=== PATIENT | male | born 1940 | race Caucasian/White ===

== ENCOUNTER 2016-06-13 11:04 | Inpatient (IN) | payer MEDICARE, MEDICAID ==
[~2016-06-13] VITALS: Ht 182.9 cm; Wt 72.6 kg
[~2016-06-13 11:04] MED LIST: SULF1TAB38 PO; TBDX2.5OP OP
--- OUTSIDE RECORDS SUMMARY | 2016-06-13 11:11 | XMS REPORT | Continuity of Care Document ---
Author Author [facility] Organization [facility] Address Unknown Phone Unavailable Allergies Medications Problems Procedures Results Encounters ACCT No. Visit Date/Time Discharge Status Pt. Type Provider Facility Loc./Unit Complaint [id number] 07/24/2013 17:55:00 2013 18:44:00 DIS Emergency [id number] 09/21/2012 12:18:00 2012 23:59:59 CLS Outpatient
[2016-06-13] MEDS ORDERED: NS IV 500 ML 500 ML IV ONE (11:40)
--- NOTE | 2016-06-13 11:57 | ED Fall/Injury ---
General Chief Complaint: Trauma-Non Activation Stated Complaint: FALL/UNSTEADY GAIT CONFUSED Nursing Triage Note: Fall yesterday- hit head on wall. leaning to rt- Source: patient Exam Limitations: no limitations History of Present Illness Time seen by provider: 11:40 Initial Comments Here with report of fall yesterday and hitting his head on the wall. Reports from residential state that he is bleeding to the right. He was seen by his primary care provider at the residential today, Robert Gaines APRN. He is requesting evaluation do to fall and hitting his head. Patient denies any significant pain but he has Alzheimer's disease and residential report that he is acting a little different than typical. He is moving all extremities. He does appear to be weak. Patient is poor historian due to clinical condition. Occurred: yesterday Severity: moderate Injuries/Pain Location: head Context: unknown Loss of Consciousness: no loss of consciousness Associated Symptoms (Fall): No Abdominal Pain, No Chest Pain, ConfusionNo Nausea/Vomiting, No Neck Pain Allergies and Home Medications Allergies Coded Allergies: No Known Drug Allergies (Unverified , 06/13/16) Constitutional: see HPINo chills, No fever Eyes: No Symptoms Reported Ears, Nose, Mouth, Throat: no symptoms reporteddenies epistaxis, denies mouth pain Respiratory: no symptoms reportedNo short of breath, No wheezing Cardiovascular: no symptoms reportedNo chest pain Other Unable to complete review of systems due to underlying medical condition and history of dementia with findings of poor historian. All Other Systems Reviewed Negative Unless Noted: No Past Bnsgaly-Anlxxe-Hzptpu Hx Patient Social History Alcohol Use: Denies Use Recreational Drug Use: No Smoking Status: Never a Smoker 2nd Hand Smoke Exposure: No Recent Foreign Travel: No Contact w/Someone Who Travel: No Recent Infectious Disease Expo: No Recent Hopitalizations: No Immunizations Up To Date Tetanus Booster (TDap): Unknown Date of Pneumonia Vaccine: Jan 07, 2012 Date of Influenza Vaccine: Jan 26, 2016 Seasonal Allergies Seasonal Allergies: No Surgeries HX Surgeries: No Respiratory Hx Respiratory Disorders: Yes ("SPOT ON HIS LUNG") Cardiovascular Hx Cardiac Disorders: No Neurological Hx Neurological Disorders: No Reproductive System Hx Reproductive Disorders: No Sexually Transmitted Disease: No Genitourinary Hx Genitourinary Disorders: No Gastrointestinal Hx Gastrointestinal Disorders: No Musculoskeletal Hx Musculoskeletal Disorders: No Endocrine Hx Endocrine Disorders: No HEENT HX ENT Disorders: Yes Psychosocial Hx Psychiatric Problems: Yes (dementia/insomnia) Blood Transfusions Hx Blood Disorders: No Reviewed Nursing Assessment Reviewed/Agree w Nursing PMH: Yes Family Medical History Significant Family History: No Pertinent Family Hx Physical Exam Vital Signs Vital Sign - Last 12Hours Capillary Refill : Less Than 3 Seconds General Appearance: WD/WN no apparent distress HEENT: PERRL/EOMI pharynx normal Neck: full range of motion supple Cardiovascular: regular rate, rhythm no murmur Respiratory: lungs clear normal breath sounds Gastrointestinal: non tender soft Back: normal inspection no CVA tenderness no vertebral tenderness Extremities: non-tender normal inspection Neurologic/Psychiatric: alert motor weakness (appears globally weak) depressed affect other (oriented to self does follow simple commands.) Skin: normal color warm/dry ecchymosis (forehead has small area centrally.) Manasa Coma Score Best Eye Response: (4) Open Spontaneously Best Verbal Response: (5) Oriented Best Motor Response: (6) Obeys Commands Progress/Results/Core Measures Results/Orders Lab Results Laboratory Tests Test 06/13/16 11:30 06/13/16 11:45 Range/Units Alanine Aminotransferase (ALT/SGPT) 12 0-55 U/L Albumin 4.1 3.2-4.5 G/DL Alkaline Phosphatase 96 40-136 U/L Anion Gap 12 5-14 MMOL/L Aspartate Amino Transf (AST/SGOT) 24 5-34 U/L BUN/Creatinine Ratio 15 Basophils # (Auto) 0.0 0.0-0.1 10^3/uL Basophils (%) (Auto) 0 0-10 % Blood Urea Nitrogen 13 7-18 MG/DL C-Reactive Protein High Sensitivity 0.04 0.00-0.50 MG/DL Calcium Level 8.9 8.5-10.1 MG/DL Carbon Dioxide Level 24 21-32 MMOL/L Chloride Level 106 98-107 MMOL/L Creatinine 0.84 0.60-1.30 MG/DL Eosinophils # (Auto) 0.0 0.0-0.3 10^3/uL Eosinophils (%) (Auto) 1 0-10 % Estimat Glomerular Filtration Rate > 60 Glucose Level 82 70-105 MG/DL Hematocrit 47 40-54 % Hemoglobin 15.7 13.3-17.7 G/DL Lymphocytes # (Auto) 1.0 1.0-4.0 X 10^3 Lymphocytes (%) (Auto) 14 12-44 % Mean Corpuscular Hemoglobin 31 25-34 PG Mean Corpuscular Hemoglobin Concent 34 32-36 G/DL Mean Corpuscular Volume 91 80-99 FL Mean Platelet Volume 11.2 H 7.4-10.4 FL Monocytes # (Auto) 0.7 0.0-1.0 X 10^3 Monocytes (%) (Auto) 10 0-12 % Neutrophils # (Auto) 5.1 1.8-7.8 X 10^3 Neutrophils (%) (Auto) 75 42-75 % Platelet Count 197 130-400 10^3/uL Potassium Level 4.2 3.6-5.0 MMOL/L Red Blood Count 5.15 4.35-5.85 10^6/uL Red Cell Distribution Width 13.9 10.0-14.5 % Sodium Level 142 135-145 MMOL/L Thyroid Stimulating Hormone (TSH) 0.97 0.35-4.94 UIU/ML Total Bilirubin 0.6 0.1-1.0 MG/DL Total Protein 6.9 6.4-8.2 G/DL White Blood Count 6.8 4.3-11.0 10^3/uL Urine Bacteria NEGATIVE /HPF Urine Bilirubin 1+ H NEGATIVE Urine Casts NONE /LPF Urine Clarity CLEAR Urine Color YELLOW Urine Crystals NONE /LPF Urine Culture Indicated NO Urine Glucose (UA) NEGATIVE NEGATIVE Urine Ketones 1+ H NEGATIVE Urine Leukocyte Esterase 1+ H NEGATIVE Urine Mucus SMALL H /LPF Urine Nitrite NEGATIVE NEGATIVE Urine Protein 2+ H NEGATIVE Urine RBC 0-2 /HPF Urine RBC (Auto) NEGATIVE NEGATIVE Urine Specific [place] 1.025 H 1.016-1.022 Urine Squamous Epithelial Cells NONE /HPF Urine Urobilinogen 4 H NORMAL MG/DL Urine WBC 2-5 /HPF Urine pH 6 5-9 My Orders Orders-ANA AMBROSIO MD Ct Head Wo (06/13/16 11:40) Cbc With Automated Diff (06/13/16 11:40) Comprehensive Metabolic Panel (06/13/16 11:40) Hs C Reactive Protein (06/13/16 11:40) Thyroid Stimulating Hormone (06/13/16 11:40) Ua Culture If Indicated (06/13/16 11:40) Saline Lock/Iv-Start (06/13/16 11:40) Ns Iv 500 Ml (Sodium Chloride 0.9%) (06/13/16 11:40) Chest 1 View, Ap/Pa Only (06/13/16 11:40) Medications Given in ED Current Medications Medications Dose Ordered Sig/Regis Route Start Time Stop Time Status Last Admin Dose Admin Sodium Chloride 500 ml @ 0 mls/hr Q0M ONCE IV 06/13/16 11:40 06/13/16 11:43 DC 06/13/16 11:59 500 MLS/HR Vital Signs/I&O Vital Sign - Last 12Hours 06/13/16 06/13/16 06/13/16 11:17 11:17 12:40 Temp 97.4 97.4 Pulse 70 70 76 Resp 18 18 18 B/P 145/99 145/99 143/95 Pulse Ox 96 97 96 Blood Pressure Mean: 114 Progress Note : Progress Note Seen and evaluated. IV, labs, CT head, UA, normal saline 500 mL bolus ordered. Monitor patient. 1255: Labs and CT reviewed. Patient does have small area of hemorrhagic stroke which radiologist believes is likely acute to subacute and the cause of the weakness and not a result of the fall. I agree. I did discuss all the findings and concerns with the and the patient was that the POA. He is DO NOT RESUSCITATE per her for which I agree. He is not a surgical candidate and she does not want him to have any type of surgery. Due to recent nature of hemorrhagic condition, it is reasonable to keep patient in the hospital for further evaluation including swallow study etc. This was discussed with the agrees. We did attempt to do a stroke scale and patient will speak and there is no facial droop but he does not follow commands and you're unable to truly evaluate a stroke scale with any validity. Due to difficulty with following commands, we will also refill him on his dysphagia screen and request speech evaluation. 1305: I did discuss the case with Dr. Nye. She will except patient for admission. Patient has balance and gait disturbance consistent with the hemorrhagic stroke. Admit, inpatient status. Diagnostic Imaging Diagonstic Imaging: CT Plain Films/CT/US/NM/MRI: head Comments [facility]. [place], [place] NAME: LINMARIAJOSE [facility] REC#: [id number] PT STATUS: REG ER : 1940 PHYSICIAN: ANA AMBROSIO MD ADMIT DATE: 06/13/16/ER Draft Date of Exam:06/13/16 CT HEAD WO PROCEDURE: CT head without contrast. TECHNIQUE: Multiple contiguous axial images were obtained through the brain without the use of intravenous contrast. INDICATION: Leaning to the right, unsteady gait, fall. Study compared 05/08/2009. FINDINGS: In the high posterior right parietal lobe, there is a small hyperdense presumed intracerebral hematoma with mild charla-hemorrhagic edema. It measures 9.6 mm in long axis and exerts no mass effect. It is best seen and measured on axial image 27. There are no findings of intraventricular hemorrhage. No subdural or epidural hematoma. No other suspected intracerebral blood products are found. There is no displaced or appreciable calvarial fracture deformity. The mastoids and middle ear cavities clear. There is no paranasal hemosinus. Since the prior study, there is progressive generalized cerebral cortical atrophy with increased periventricular white matter small vessel sequelae. There also appears to be a left basal ganglion lacunar infarct having developed from the prior but well visualized and likely nonacute. There is some small vessel sequelae in brainstem most notably at the rosette having increased but likely chronic as well. IMPRESSION: 1. Hyperdense nodule right high parietal lobe posteriorly believed to reflect small intraparenchymal cerebral hematoma less than 1 cm with mild charla-hemorrhagic edema and no resultant mass effect. No other acute finding. 2. Progressive atrophy, white matter small vessel sequelae, and old ischemic changes noted. 3. Pertinent results have been discussed by phone with the emergency room physician at the time of this dictation. Dictated on workstation # [id number] Dict: 06/13/16 1210 Trans: 06/13/16 1235 KB [id number] Interpreted by: MARY STRE[address] Electronically signed by: Dianstic Imaging: Xray Comments [facility] [place], [place] NAME: MARIAJOSE CEBALLOS [facility] REC#: [id number] PT STATUS: REG ER : 1940 PHYSICIAN: ANA AMBROSIO MD ADMIT DATE: 06/13/16/ER Draft Date of Exam:06/13/16 CHEST 1 VIEW, AP/PA ONLY INDICATION: Unsteady gait and fall. Frontal chest obtained at 12:06 p.m. and compared to 09/21/2012. FINDINGS: Heart is normal in size. Mediastinal silhouette shows mild tortuosity of the aorta. There is no acute infiltrate or pneumothorax or pleural fluid. There are mild chronic-appearing increased basilar markings. IMPRESSION: No acute consolidation or pneumothorax or pleural fluid. No acute process in the chest. Dictated on workstation # [id number] Dict: 06/13/16 1212 Trans: 06/13/16 1218 KB [id number] Interpreted by: DUC RODRIGUEZ MD Electronically signed by: Departure Communication Time/Spoke to Admitting Phy: 13:02 Impression Impression: Primary Impression: Hemorrhagic stroke Disposition: 09 ADMITTED INPATIENT Condition: Stable (small) Decision to Admit Reason: Admit from ER (General) Decision to Admit/Date: Jun 13, 2016 Time/Decision to Admit Time: 13:02 Departure-Patient Inst. Decision time for Depature: 13:02 Referrals: EZEKIEL VAZQUEZ MD (PCP/Family) Primary Care Physician Scripts No Active Prescriptions or Reported Meds ANA AMBROSIO MD Jun 13, 2016 11:57
[2016-06-13 12:05] LABS: BASOPHILS % (AUTO) 0 % (0-10); EOSINOPHILS % (AUTO) 1 % (0-10); LYMPHOCYTES % (AUTO) 14 % (12-44); MEAN CORPUSCULAR HEMOGLOBIN 31 PG (25-34); MEAN CORPUSCULAR HGB CONC 34 G/DL (32-36); MEAN CORPUSCULAR VOLUME 91 FL (80-99); MEAN PLATELET VOLUME 11.2 FL (7.4-10.4); MONOCYTES # (AUTO) 0.7 X 10^3 (0.0-1.0); MONOCYTES % (AUTO) 10 % (0-12); NEUTROPHILS # (AUTO) 5.1 X 10^3 (1.8-7.8); NEUTROPHILS % (AUTO) 75 % (42-75); PLATELET COUNT 197 10^3/uL (130-400); RED BLOOD COUNT 5.15 10^6/uL (4.35-5.85); RED CELL DISTRIBUTION WIDTH 13.9 % (10.0-14.5); WHITE BLOOD COUNT 6.8 10^3/uL (4.3-11.0)
[2016-06-13 12:06] LABS: KETONES,URINE 1+ (NEGATIVE); LEUKOCYTE ESTERASE ,URINE 1+ (NEGATIVE); NITRITE,URINE NEGATIVE (NEGATIVE); PH,URINE 6 (5-9); PROTEIN,URINE 2+ (NEGATIVE); UROBILINOGEN,URINE 4 MG/DL (NORMAL)
[2016-06-13 12:18] LABS: BILIRUBIN,URINE 1+ (NEGATIVE)
--- NOTE | 2016-06-13 12:18 | Diagnostic Imaging Report ---
INDICATION: Unsteady gait and fall. Frontal chest obtained at 12:06 p.m. and compared to 09/21/2012. FINDINGS: Heart is normal in size. Mediastinal silhouette shows mild tortuosity of the aorta. There is no acute infiltrate or pneumothorax or pleural fluid. There are mild chronic-appearing increased basilar markings. IMPRESSION: No acute consolidation or pneumothorax or pleural fluid. No acute process in the chest. Dictated by: Dictated on workstation # [id number]
[2016-06-13 12:26] LABS: ALANINE AMINOTRANSFERASE 12 U/L (0-55); ALBUMIN 4.1 G/DL (3.2-4.5); ANION GAP 12 MMOL/L (5-14); ASPARTATE AMINO TRANSFERASE 24 U/L (5-34); BILIRUBIN,TOTAL 0.6 MG/DL (0.1-1.0); BLOOD UREA NITROGEN 13 MG/DL (7-18); BUN/CREATININE RATIO 15; CALCIUM 8.9 MG/DL (8.5-10.1); CARBON DIOXIDE 24 MMOL/L (21-32); CHLORIDE 106 MMOL/L (98-107); CREATININE SERUM 0.84 MG/DL (0.60-1.30); GFR ESTIMATED > 60; GLUCOSE 82 MG/DL (70-105); POTASSIUM 4.2 MMOL/L (3.6-5.0); SODIUM 142 MMOL/L (135-145); TOTAL PROTEIN 6.9 G/DL (6.4-8.2); hs C REACTIVE PROTEIN 0.04 MG/DL (0.00-0.50)
--- NOTE | 2016-06-13 12:35 | Diagnostic Imaging Report ---
PROCEDURE: CT head without contrast. TECHNIQUE: Multiple contiguous axial images were obtained through the brain without the use of intravenous contrast. INDICATION: Leaning to the right, unsteady gait, fall. Study compared 05/08/2009. FINDINGS: In the high posterior right parietal lobe, there is a small hyperdense presumed intracerebral hematoma with mild charla-hemorrhagic edema. It measures 9.6 mm in long axis and exerts no mass effect. It is best seen and measured on axial image 27. There are no findings of intraventricular hemorrhage. No subdural or epidural hematoma. No other suspected intracerebral blood products are found. There is no displaced or appreciable calvarial fracture deformity. The mastoids and middle ear cavities clear. There is no paranasal hemosinus. Since the prior study, there is progressive generalized cerebral cortical atrophy with increased periventricular white matter small vessel sequelae. There also appears to be a left basal ganglion lacunar infarct having developed from the prior but well visualized and likely nonacute. There is some small vessel sequelae in brainstem most notably at the rosette having increased but likely chronic as well. IMPRESSION: 1. Hyperdense nodule right high parietal lobe posteriorly believed to reflect small intraparenchymal cerebral hematoma less than 1 cm with mild charla-hemorrhagic edema and no resultant mass effect. No other acute finding. 2. Progressive atrophy, white matter small vessel sequelae, and old ischemic changes noted. 3. Pertinent results have been discussed by phone with the emergency room physician at the time of this dictation. Dictated by: Dictated on workstation # [id number]
[2016-06-13 12:40] VITALS: BP 143/95
[2016-06-13 12:48] LABS: THYROID STIMULATING HORMONE 0.97 UIU/ML (0.35-4.94)
[2016-06-13 14:37] VITALS: BP 172/92
[2016-06-13] MEDS ORDERED: TRAZ150T72 PO (15:06)
[2016-06-13] MEDS ORDERED: MELA1TAB10 PO (15:06)
[2016-06-13] MEDS ORDERED: POLY15DR14 OU (15:06)
[2016-06-13] MEDS ORDERED: MAGN400O7 PO (15:06)
[2016-06-13] MEDS ORDERED: LORA10TA76 PO (15:06)
[2016-06-13] MEDS ORDERED: DVL125C PO ×2 (15:06)
[2016-06-13] MEDS ORDERED: POLY17PO6 PO (15:06)
[2016-06-13] MEDS ORDERED: ACET-2267 PO (15:06)
[2016-06-13] MEDS ORDERED: RIVA1PAT13 TD (15:06)
[2016-06-13] MEDS ORDERED: LORA0.5T PO (15:06)
[2016-06-13] MEDS ORDERED: MEMA10TA2 PO (15:06)
[2016-06-13] MEDS ORDERED: DOCU-143 PO (15:06)
[2016-06-13] MEDS ORDERED: VIT-8 PO (15:06)
[2016-06-13] MEDS ORDERED: LABETALOL HCL 20 MG/4 ML VIAL IV PRN (15:15)
[2016-06-13] MEDS ORDERED: CATHETER FLUSH 10 ML SYR IV PRN (15:15)
[2016-06-13] MEDS: NS IV 1000 ML 1,000 ML IV SCH (15:18)
[2016-06-13 16:00] VITALS: BP 149/97
--- NOTE | 2016-06-13 16:29 | Speech Therapy Progress Note ---
Therapy Progress Note Nursing was notified that a speech therapist is unavailable until 06/16/16. Per policy nursing can administer the bed side swallow assessment in order to determine whether or not to place a patient on swallowing restrictions. Speech therapy will consult with this patient 06/16/16. Vic Willis, PT Director of Rehab Services VIC WILLIS PT Jun 13, 2016 16:29
[2016-06-13] MEDS ORDERED: LORazepam INJ 2 MG/ML (ATIVAN) VIAL IVP NR (18:30)
[2016-06-13 20:00] VITALS: BP 148/85
[2016-06-13] MEDS ORDERED: LORazepam INJ 2 MG/ML (ATIVAN) VIAL IVP PRN (20:00)
[2016-06-13] MEDS: ARTIFICAL TEARS 0.4 ML UNIT DOSE (REFRESH PLUS) OU SCH (21:00)
[2016-06-13] MEDS: MEMANTINE 10 MG (NAMENDA) TABLET PO SCH (21:00)
[2016-06-13] MEDS ORDERED: LORazepam 0.5 MG (ATIVAN) TABLET PO SCH (21:00)
[2016-06-13] MEDS: traZODone 150 MG (DESYREL) TABLET PO SCH (21:00)
[2016-06-13] MEDS ORDERED: NON-FORMULARY MEDICATION 1 EA EA (Polyvinyl Alcohol/Povidone (Artificial Tears Drops) 1 DR OU SCH (21:00)
[2016-06-14] VITALS: BP 142/80
[2016-06-14] MEDS: NS IV 1000 ML 1,000 ML IV SCH (01:15)
[2016-06-14 03:53] LABS: BASOPHILS % (AUTO) 1 % (0-10); EOSINOPHILS # (AUTO) 0.1 10^3/uL (0.0-0.3); EOSINOPHILS % (AUTO) 2 % (0-10); LYMPHOCYTES # (AUTO) 1.3 X 10^3 (1.0-4.0); LYMPHOCYTES % (AUTO) 28 % (12-44); MEAN CORPUSCULAR HEMOGLOBIN 30 PG (25-34); MEAN CORPUSCULAR HGB CONC 33 G/DL (32-36); MEAN CORPUSCULAR VOLUME 92 FL (80-99); MONOCYTES # (AUTO) 0.5 X 10^3 (0.0-1.0); MONOCYTES % (AUTO) 11 % (0-12); NEUTROPHILS # (AUTO) 2.8 X 10^3 (1.8-7.8); NEUTROPHILS % (AUTO) 59 % (42-75); PLATELET COUNT 169 10^3/uL (130-400); RED BLOOD COUNT 4.37 10^6/uL (4.35-5.85); RED CELL DISTRIBUTION WIDTH 13.6 % (10.0-14.5); WHITE BLOOD COUNT 4.7 10^3/uL (4.3-11.0)
[2016-06-14 04:00] VITALS: BP 134/90
[2016-06-14 04:26] LABS: ALANINE AMINOTRANSFERASE 9 U/L (0-55); ALBUMIN 3.2 G/DL (3.2-4.5); ANION GAP 12 MMOL/L (5-14); ASPARTATE AMINO TRANSFERASE 19 U/L (5-34); BILIRUBIN,TOTAL 0.7 MG/DL (0.1-1.0); BLOOD UREA NITROGEN 11 MG/DL (7-18); BUN/CREATININE RATIO 15; CALCIUM 8.1 MG/DL (8.5-10.1); CARBON DIOXIDE 20 MMOL/L (21-32); CHLORIDE 110 MMOL/L (98-107); CREATININE SERUM 0.74 MG/DL (0.60-1.30); GFR ESTIMATED > 60; GLUCOSE 71 MG/DL (70-105); SODIUM 142 MMOL/L (135-145); TOTAL PROTEIN 5.1 G/DL (6.4-8.2)
[2016-06-14 08:00] VITALS: BP 136/67
--- NOTE | 2016-06-14 09:11 | History & Physical-Hospitalist ---
HPI History of Present Illness: HPI/Chief Complaint this is a 75-year-old white male with Alzheimer's retirement resident. He was seen by Garry Gaines yesterday and was sent to the emergency room for further evaluation of increased falling and weakness on the right side. I discussed with his daughter this morning the fact that a week ago he had been able to jump up and was very agile and active. He had fallen approximately 2 days ago; just pitched forward striking his head. Since then his right side has been weaker and is been unable to ambulate and keeps falling. this morning the patient is somewhat somnolent having received some Ativan overnight for his agitation. he follows direction slowly and incompletely seems to be devoid of any pain. CT showed a hemorrhagic stroke in the right parietal region. Source: family, retirement records Exam Limitations: clinical condition Date Seen 06/14/16 Attending Physician Kimo Nye MD PCP Ezekiel Vazquez MD Referring Physician Date of Admission Jun 13, 2016 at 1:31 pm Home Medications & Allergies Home Medications Reviewed patient Home Medication Reconciliation Form Allergies Coded Allergies: No Known Drug Allergies (Unverified , 06/13/16) Past Cnohbvu-Dneylm-Uyylyy Hx Patient Social History Employed/Student: retired Alcohol Use: Denies Use Recreational Drug Use: No Smoking Status: Never a Smoker 2nd Hand Smoke Exposure: No Physical Abuse Screen: No Sexual Abuse: No Recent Foreign Travel: No Contact w/other who traveled: No Recent Hopitalizations: No Recent Infectious Disease Expo: No Immunizations Up To Date Tetanus Booster (TDap): Unknown Date of Pneumonia Vaccine: Jan 07, 2012 Date of Influenza Vaccine: Jan 26, 2016 Seasonal Allergies Seasonal Allergies: No Surgeries HX Surgeries: Yes Surgeries: Appendectomy Respiratory Hx Respiratory Disorders: Yes ("SPOT ON HIS LUNG") Cardiovascular Hx Cardiovascular Disorders: No Neurological Hx Neurological Disorders: No Reproductive System Hx Reproductive Disorders: No Sexually Transmitted Disease: No Genitourinary Hx Genitourinary Disorders: No Gastrointestinal Hx Gastrointestinal Disorders: No Musculoskeletal Hx Musculoskeletal Disorders: No Endocrine Hx Endocrine Disorders: No HEENT HX ENT Disorders: Yes Cancer Hx Cancer: Yes Cancer: Melanoma Psychosocial Hx Psychiatric Problems: Yes (dementia/insomnia) Blood Transfusions Hx Blood Disorders: No Reviewed Nursing Assessment Reviewed/Agree w Nursing PMH: Yes Family Medical History Significant Family History: No Pertinent Family Hx Family Hx: Diabetes mellitus 19 MOTHER Neoplasm 19 MOTHER Review of Systems Constitutional: no symptoms reported see HPI Physical Exam Physical Exam Vital Signs Vital Sign - Last 12Hours 06/13/16 14:37 O2 Delivery Room Air Capillary Refill : Less Than 3 Seconds General Appearance: No Apparent Distress HEENT: Other (won't open his mouth for inspection) Neck: Limited Range of Motion Respiratory: Lungs Clear Normal Breath Sounds No Accessory Muscle Use No Respiratory Distress Cardiovascular: Regular Rate, Rhythm No Gallop No Murmur Normal Peripheral Pulses Gastrointestinal: Normal Bowel Sounds No Organomegaly No Pulsatile Mass Non Tender Soft Rectal: Deferred Extremity: Normal Inspection Normal Range of Motion Non Tender No Calf Tenderness Other (onychomycosis) Neurologic/Psychiatric: Depressed Affect Disoriented x3 Other (no real motor weakness found on exam but very difficult to evaluate because of the sedation and his dementia) Skin: Pallor Results Results/Procedures Lab Laboratory Tests 06/13/16 11:30 06/14/16 03:24 Radiology 1. Hyperdense nodule right high parietal lobe posteriorly believed to reflect small intraparenchymal cerebral hematoma less than 1 cm with mild charla-hemorrhagic edema and no resultant mass effect. No other acute finding. 2. Progressive atrophy, white matter small vessel sequelae, and old ischemic changes noted. 3. Pertinent results have been discussed by phone with the emergency room physician at the time of this dictation. Assessment/Plan Admission Diagnosis 1.right parietal hemorrhagic stroke-patient is currently unable to swallow well and will require IV fluids until this is completely evaluated 2. Senile dementia of Alzheimer's type with episodic agitation 3. Mild dehydration Copy Copies To 1: EZEKIEL VAZQUEZ MD Clinical Quality Measures DVT/VTE Risk/Contraindication: Risk Factor Score Per Nursin RFS Level Per Nursing on Admit: 4+=Very High Contraindications-Pharm: Other *list below* Other: hemorrhagic stroke KIMO NYE MD Jun 14, 2016 9:11 am
[2016-06-14] MEDS: ARTIFICAL TEARS 0.4 ML UNIT DOSE (REFRESH PLUS) OU SCH ×4 (09:24→20:32)
[2016-06-14] MEDS: AA 4.25% W/LYTES IN D5W IV SOL 1,000 ML IV SCH ×2 (09:25→18:25)
[2016-06-14] MEDS: MEMANTINE 10 MG (NAMENDA) TABLET PO SCH ×2 (10:15→20:32)
[2016-06-14] MEDS: DIVALPROX SPRINKLE 125 MG (DEPAKOTE) CAP PO SCH ×2 (10:25→13:20)
[2016-06-14] MEDS: RIVASTIGMINE 13.3 MG TD SCH (11:14)
[2016-06-14 11:57] VITALS: BP 187/90
[2016-06-14 16:18] VITALS: BP 156/79
--- NOTE | 2016-06-14 16:25 | Diagnostic Imaging Report ---
PROCEDURE: CT head and CT cervical spine without contrast. TECHNIQUE: Multiple contiguous axial images were obtained through the brain and cervical spine without the use of intravenous contrast. Sagittal and coronal reformations through the cervical spine were then performed. INDICATION: Fell in shower. Right-sided pain. COMPARISON: 06/13/2016. FINDINGS: CT head: The hyperdense area noted in the high right parietal cortex is again identified. This shows mean Hounsfield unit of approximately 60. This has not changed in appearance. No new intracranial hemorrhage has occurred. No extra-axial fluid collections. No mass effect. There is diffuse cortical atrophy. Ventricles are prominent with no evidence of hydrocephalus. Basal cisterns are clear. Bone windows show mastoid air cells and paranasal sinuses to be clear without calvarial fracture. IMPRESSION: Hyperdense area in the high parietal region on the right is unchanged. Differential again would include small focal hematoma. No evidence of acute intracranial hemorrhage occurring since previous days' exam. CT cervical spine: Sagittal and coronal images show good alignment of the vertebral bodies. Body heights are well-maintained throughout. Atlantoaxial joint appears normal. Facets are in good alignment. Degenerative disc disease at C5-C6 with loss of disc space height and hypertrophic lipping of the endplate. Mild central canal stenosis is noted. No evidence of fracture. The surrounding soft tissues appear normal. IMPRESSION: Degenerative cervical disc disease with no acute abnormalities. Dictated by: Dictated on workstation # [id number]
[2016-06-14] MEDS: traZODone 150 MG (DESYREL) TABLET PO SCH (20:32)
[2016-06-14 20:39] VITALS: BP 108/60
[2016-06-15 00:57] VITALS: BP 130/64
[2016-06-15] MEDS: AA 4.25% W/LYTES IN D5W IV SOL 1,000 ML IV SCH ×3 (01:59→17:45)
[2016-06-15 04:00] VITALS: BP 149/80
[2016-06-15] MEDS: LORazepam INJ 2 MG/ML (ATIVAN) VIAL IVP PRN ×2 (04:55→15:02)
[2016-06-15 06:57] LABS: BASOPHILS % (AUTO) 1 % (0-10); EOSINOPHILS # (AUTO) 0.1 10^3/uL (0.0-0.3); EOSINOPHILS % (AUTO) 1 % (0-10); LYMPHOCYTES % (AUTO) 20 % (12-44); MEAN CORPUSCULAR HEMOGLOBIN 31 PG (25-34); MEAN CORPUSCULAR HGB CONC 34 G/DL (32-36); MEAN CORPUSCULAR VOLUME 90 FL (80-99); MEAN PLATELET VOLUME 11.1 FL (7.4-10.4); MONOCYTES # (AUTO) 0.5 X 10^3 (0.0-1.0); MONOCYTES % (AUTO) 11 % (0-12); NEUTROPHILS # (AUTO) 3.4 X 10^3 (1.8-7.8); NEUTROPHILS % (AUTO) 68 % (42-75); PLATELET COUNT 160 10^3/uL (130-400); RED BLOOD COUNT 4.46 10^6/uL (4.35-5.85)
[2016-06-15 07:15] LABS: ALANINE AMINOTRANSFERASE 11 U/L (0-55); ALBUMIN 3.4 G/DL (3.2-4.5); ANION GAP 9 MMOL/L (5-14); ASPARTATE AMINO TRANSFERASE 20 U/L (5-34); BILIRUBIN,TOTAL 0.6 MG/DL (0.1-1.0); BLOOD UREA NITROGEN 17 MG/DL (7-18); BUN/CREATININE RATIO 25; CALCIUM 8.3 MG/DL (8.5-10.1); CARBON DIOXIDE 24 MMOL/L (21-32); CHLORIDE 103 MMOL/L (98-107); CREATININE SERUM 0.67 MG/DL (0.60-1.30); GFR ESTIMATED > 60; GLUCOSE 106 MG/DL (70-105); SODIUM 136 MMOL/L (135-145)
[2016-06-15 08:00] VITALS: BP 131/75
[2016-06-15] MEDS: MEMANTINE 10 MG (NAMENDA) TABLET PO SCH ×2 (09:40→21:36)
[2016-06-15] MEDS: DIVALPROX SPRINKLE 125 MG (DEPAKOTE) CAP PO SCH ×2 (09:40→13:02)
[2016-06-15] MEDS: ARTIFICAL TEARS 0.4 ML UNIT DOSE (REFRESH PLUS) OU SCH ×4 (09:40→21:36)
[2016-06-15] MEDS: RIVASTIGMINE 13.3 MG TD SCH (09:49)
[2016-06-15] MEDS: PATCH REMOVAL TP SCH (09:50)
--- NOTE | 2016-06-15 11:13 | Progress Note-Hospitalist ---
Subjective HPI/CC On Admission this is a 75-year-old white male with Alzheimer's alf resident. He was seen by Garry Gaines yesterday and was sent to the emergency room for further evaluation of increased falling and weakness on the right side. I discussed with his daughter this morning the fact that a week ago he had been able to jump up and was very agile and active. He had fallen approximately 2 days ago; just pitched forward striking his head. Since then his right side has been weaker and is been unable to ambulate and keeps falling. this morning the patient is somewhat somnolent having received some Ativan overnight for his agitation. he follows direction slowly and incompletely seems to be devoid of any pain. CT showed a hemorrhagic stroke in the right parietal region. Date Seen 06/15/16 Subjective/Events-last exam patient is lying in bed confused and restless. No family is present. CT head and neck shows no change in the bleeding in the parietal area and CT neck shows no evidence for fracture. we're awaiting speech evaluation on Thursday before discharge back to the alf so that we are able to be assured that he is not aspirating. He does not follow direction well. Review of Systems Neurological: : Incoordination: Weakness Objective Exam Vital Signs Vital Sign - Last 12Hours 06/13/16 14:37 O2 Delivery Room Air Capillary Refill : Less Than 3 Seconds General Appearance: Chronically ill Eyes: Bilateral Eye Normal Inspection HEENT: Normal ENT Inspection Neck: Non Tender Supple Respiratory: Lungs Clear Normal Breath Sounds No Accessory Muscle Use No Respiratory Distress Cardiovascular: Regular Rate, Rhythm No Gallop No Murmur Gastrointestinal: No Pulsatile Mass Non Tender Soft Extremity: Normal Inspection Normal Range of Motion Non Tender No Calf Tenderness Neurologic/Psychiatric: Alert Disoriented x3 Skin: Normal Color Results/Procedures Lab Laboratory Tests 06/15/16 06:15 Assessment/Plan Assessment and Plan Assess & Plan/Chief Complaint 1. right parietal hemorrhagic stroke versus hematoma-patient is currently unable to swallow well and will require IV fluids until this is completely evaluated-on Clinimix 2. Senile dementia of Alzheimer's type with episodic agitation-decreased functionality from 2-3 weeks ago 3. Mild dehydration KIMO MANZANO MD Jun 15, 2016 11:13
[2016-06-15 12:00] VITALS: BP 154/91
[2016-06-15 16:14] VITALS: BP 162/89
[2016-06-15 20:10] VITALS: BP 172/86
[2016-06-15] MEDS: traZODone 150 MG (DESYREL) TABLET PO SCH (21:36)
[2016-06-16] VITALS: BP 148/92
[2016-06-16] MEDS: AA 4.25% W/LYTES IN D5W IV SOL 1,000 ML IV SCH ×2 (01:48→08:11)
[2016-06-16 04:00] VITALS: BP 112/75
[2016-06-16] MEDS: RIVASTIGMINE 13.3 MG TD SCH (07:57)
[2016-06-16 08:00] VITALS: BP 130/89
[2016-06-16] MEDS: ARTIFICAL TEARS 0.4 ML UNIT DOSE (REFRESH PLUS) OU SCH ×2 (08:10→12:39)
[2016-06-16] MEDS: MEMANTINE 10 MG (NAMENDA) TABLET PO SCH (08:11)
[2016-06-16] MEDS: PATCH REMOVAL TP SCH (08:11)
[2016-06-16] MEDS: DIVALPROX SPRINKLE 125 MG (DEPAKOTE) CAP PO SCH ×2 (08:11→12:39)
--- NOTE | 2016-06-16 09:36 | Physical Therapy Evaluation ---
PT Evaluation-General Medical Diagnosis Admission Date Jun 13, 2016 at 13:31 Medical Diagnosis: right parietal hemorrhagic stroke Onset Date: Jun 13, 2016 Therapy Diagnosis Therapy Diagnosis: debility Height/Weight Height (Feet): 6 Height (Inches): 0 Weight (Pounds): 160 Precautions Precautions/Isolations: Fall Prevention, Standard Precautions Referral Physician: Popeye Reason for Referral: Evaluation/Treatment Medical History Pertinent Medical History: Dementia (Alzheimers) Additional Medical History very active physically per report; he has been having balance difficulty and falls x 3 wks per report Current History fall and hit his head and right sided weakness; decreased balance; inability to ambulate Reviewed History: Yes Social History Home: Half-Way Prior/Core FIM Prior Level of Function Functional [place] Measure 0=Not Assessed/NA 4=Minimal Assistance 1=Total Assistance 5=Supervision or Setup 2=Maximal Assistance 6=Modified [place] 3=Moderate Assistance 7=Complete [place] Bed Mobility: 5 Transfers (B,C,W/C) (FIM): 5 Gait: 5 PT Evaluation-Current Subjective Patient is in bed and mumbles. Unable to follow simple direction with gross motor skills. Pain Numeric Pain Scale: 0-No Pain Location: No Pain Reported Objective Patient Orientation: Confused, Mumbles Problem Solving: Poor Attachments: IV ROM/Strength ROM Lower Extremities bilateral LE WFL Strenght Lower Extremities limited MMT bilateral LE, however, unable to formally test due to dementia Integumentary/Posture Integumentary refer to nursing notes Bladder Incontinence: Yes Posture functional Neuromuscular (Tone, Coordination, Reflexes) severely diminished coordination due to Alzheimer's Sensory Vision: Unable to Assess Hearing: Unable to Assess Transfers Functional [place] Measure 0=Not Assessed/NA 4=Minimal Assistance 1=Total Assistance 5=Supervision or Setup 2=Maximal Assistance 6=Modified [place] 3=Moderate Assistance 7=Complete [place] Transfers (B, C, W/C) (FIM): 2 Scootin Rollin Supine to/from Sit: 2 Sit to/from Stand: 2 bed t/f WC(FIM only if WC use): 2 Max assist with all mobility. When sitting EOB, patient would turn and place bilateral LE into bed. Balance Sitting Static: Poor Sitting Dynamic: Poor Standing Static: Poor Standing Dynamic: Poor Assessment/Needs 75 y.o. severely demented male, will benefit from short term skilled PT to address functional mobility. Patient is unable to follow simple direction due to dementia. Rehab Potential: Fair Post Rehab Potential-Barriers: dementia PT Short Term Goals Short Term Goals Time Frame: Jun 20, 2016 Transfers (B,C,W/C) (FIM): 3 Gait (FIM): 1 Distance (FIM): 1=up to 49 ft Gait Distance Comment: 5-10' Gait Level of Assist: 3 Gait Assistive Device: None, FWW PT Plan Problem List Problem List: Activity Tolerance, Functional Strength, Safety, Balance, Gait, Transfer Treatment/Plan Treatment Plan: Continue Plan of Care Treatment Plan: Bed Mobility, Education, Functional Activity Obdulia, Functional Strength, Gait, Safety, Therapeutic Exercise, Transfers Treatment Duration: Jun 20, 2016 # of days/week 5 Visits Per Week: 5 Discharge Recommendations Therapy D/C Recommendations: Half-Way Placement, Senior Living (TCU/NH) Time/GCodes Time In: 901 Time Out: 916 Total Billed Treatment Time: 15 Total Billed Treatment 1 visit EVLowC 15 min G Codes Necessary: VETO Cohen PT Jun 16, 2016 09:35
--- NOTE | 2016-06-16 10:32 | ST Dysphagia Evaluation ---
Speech Evaluation-General Medical Diagnosis Right Parietal Hemorrhagic Stroke Onset Date: Jun 13, 2016 Therapy Diagnosis Therapy Diagnosis: Mild Oral Dysphagia Precautions Precautions: Aspiration Precautions/Isolations: Fall Prevention, Standard Precautions Referral Referring Physician: Dr. Trinidad Nye Reason for Referral: Evaluation/Treatment Clinical Bedside Swallowing Evaluation Medical History Pertinent Medical History: Dementia (Alzheimers) Reviewed History: Yes Social History Home: Senior Living Speech PLF/Current-Dysphagia Prior Level of Function The patient demonstrated severe expressive aphasia and was unable to provide the clinician with information regarding his prior level of function. The patient did not respond to questions poised by the clinician throughout the assessment. Cognitive Status The patient did not respond to simple orientation questions asked by the clinician. Oral Motor Skills Dentition: Edentalous (Dentures were not present at bedside.) Ability to Follow Directions: Poor The patient is NPO pending results of swallowing evaluation by speech pathology. Oral Expression Ability: Severe Impairment Voice Voice Phonatory-Based Quality: Glottal Gamez Voice Pitch: Normal Voice Loudness: Mildly Soft/Quiet Face Facial Symmetry: Symmetrical (At rest.) Due to the patient's inability to follow directions, an informal oral mechanism evaluation was completed by the clinician. Oral-Facial Assessment Oral-Facial Dentition: Normal Labial Seal Description: Normal Dysphagia Evaluation Consistencies Presented: Regular (Saltine Cracker), Thin Liquid (Teaspoon and Straw (water)), Pureed (Applesauce) 1. Increased mastication time, as well as, mild buccal residue was noted with the saltine cracker. An anterior finger sweep was performed by the clinician to ensure the bolus had cleared the oral cavity. 1. No pharyngeal impairments were noted throughout the evaluation. 1. No signs/symptoms of aspiration were demonstrated with thin liquid (water via teaspoon and straw sips, 8 ounces), puree (six teaspoons of applesauce), or solid (one bite of a saltine cracker). The patient's vocal quality remained clear throughout the assessment. Due to the prolonged mastication time, solid consistencies are not recommended. Dietary Recommendations: Pureed Liquid Recommendations: Thin Swallowing Precautions: Oral Supervision Staff, Pocketing (Assess for possible oral holding of bolus material throughout and following meals.), Small Bites and Sips, Sitting 90 Degrees 30 Post Intake 1. Crush medication and place in puree for administration. Dysphagia Evaluation Summary Mild oral dysphagia characterized by decreased lingual coordination. Barriers to Learning Cognition Speech-Plan Treatment Plan Speech Therapy Treatment Plan: Discontinue ST Evaluation, only. Rehab Potential: Guarded Safety Risks/Education Teaching Recipient: Patient (Patient's RN) Teaching Methods: Discussion Response to Teaching: Verbalize Understanding (Patient's RN) Education Topics Provided: Results, recommendations, swallowing strategies Time Speech Therapy Time In: 09:20 Speech Therapy Time Out: 09:35 Total Billed Time: 15 Billed Treatment Time 1, REN CARSON Jun 16, 2016 10:32
--- NOTE | 2016-06-16 11:53 | Occupational Therapy Eval ---
OT Evaluation-General/PLF Medical Diagnosis Admission Date Jun 13, 2016 at 13:31 Medical Diagnosis: Right Parietal Hemorrhagic Stroke Onset Date: Jun 13, 2016 Therapy Diagnosis Therapy Diagnosis: impaired self care skills Height/Weight Height (Feet): 6 Height (Inches): 0 Weight (Pounds): 160 Precautions Precautions/Isolations: Fall Prevention, Standard Precautions Safety Interventions: Bed Exit Alarm, Reorient-PRN Referral Physician: Popeye Medical History Pertinent Medical History: Dementia (Alzheimers) Reviewed History: Yes Social History Home: Half-Way ADL-Prior Level of Function ADL PLOF Comments Pt unable to provide information regarding PLOF and no family present. Per chart [facility] is a [facility] resident. Chart states pt was active prior to admission, but was falling the last few days. OT Current Status Subjective Pt sitting in chair. Pt unable to answer questions and does not follow commands during session. Mental Status/Objective Patient Orientation: Confused Attachments: IV Current Upper Extremity ROM Pt does not follow commands for ROM testing. Attempted PROM, but pt resists. Pt does move UE spontaneously Upper Extremity Strength Unable to perform MMT secondary to confusion. ADL-Treatment ADL-Current Attempted to have pt wash face, but pt does not follow commands or participate in task. UE assessment completed while pt sitting in chair. Pt has bilateral soft mittens in place.Telesitter in room. Functional [place] Measure 0=Not Assessed/NA 4=Minimal Assistance 1=Total Assistance 5=Supervision or Setup 2=Maximal Assistance 6=Modified [place] 3=Moderate Assistance 7=Complete IndependenceIRFPAI Quality Coding Scale 6 Independent with activity with or without an assistive device 5 Patient requires set up or clean up by helper. Patient completes activity by themselves 4 Supervision or touching assist (CGA). Temple provide cues , steadying assist 3 The helper provides less than half the effort to complete the activity 2 The helper provides more than half the effort to complete the activity 1 Dependent. The helper does all the effort to complete an activity 7 Patient refused to complete or attempt activity 9 The patient did not perform the activity before the current illness or injury 88 Not attempted due to Medical conditions or safety concerns Education OT Patient Education: Rehab process Teaching Recipient: Patient Teaching Methods: Discussion Response to Teaching: Unable to Comprehend OT Short Term Goals Short Term Goals Transfers (B,C,W/C) (FIM): 3 1=Demonstrate adherence to instructed precautions during ADL tasks. 2=Patient will verbalize/demonstrate understanding of assistive devices/ modifications for ADL. 3=Patient will improve strength/tolerance for activity to enable patient to perform ADL's. OT Detention Goals Gate Watch Goals Time Frame: Jun 23, 2016 Eating (FIM): 3 Grooming(FIM): 3 Toilet/Commode Transfer(FIM): 3 1=Demonstrate adherence to instructed precautions during ADL tasks. 2=Patient will verbalize/demonstrate understanding of assistive devices/ modifications for ADL. 3=Patient will improve strength/tolerance for activity to enable patient to perform ADL's. OT Education/Plan Problem List/Assessment Assessment: Decreased Activ Tolerance, Decreased Safety Aware, Decreased UE Strength, Dependent Transfers, Impaired Cognition, Impaired Coordination, Impaired Funct Balance, Impaired Self-Care Skills Pt to benefit from short term skilled OT intervention to increase ability to perform simple ADL tasks and mobility. Discharge Recommendations Plan/Recommendations: Continue POC Treatment Plan/Plan of Care Treatment,Training & Education: Yes Patient would benefit from OT for education, treatment and training to promote independence in ADL's, mobility, safety and/or upper extremity function for ADL' s. Plan of Care: ADL Retraining, Functional Mobility, UE Funct Exercise/Act Treatment Duration: Jun 23, 2016 # of days/week 5 Visits Per Week: 5 Rehab Potential: Guarded Time/GCodes Start Time: 11:11 Stop Time: 11:26 Total Time Billed (hr/min): 15 Billed Treatment Time 1 visit, LYNDSAY(15minutes) NILS CHAVARRIA OT Jun 16, 2016 11:53
[2016-06-16 12:00] VITALS: BP 142/90
--- NOTE | 2016-06-16 14:12 | Progress Note-Hospitalist ---
Standard Progress Note Progress Notes/Assess & Plan Date Seen 06/16/16 Diagnosis 1.right parietal hemorrhagic stroke-patient is currently unable to swallow well and will require IV fluids until this is completely evaluated 2. Senile dementia of Alzheimer's type with episodic agitation 3. Mild dehydration Assess & Plan/Chief Complaint The patient is a 75-year-old white male senior care resident. He was admitted directly after a provider examination found him to be weak at the senior care. CT scan was consistent with a right parietal lobe bleed. He has now reached maximum benefit from this admission. Physical exam: The patient is alert and pleasant. His answer to my questioningS do not seem to correspond to the question asked. Lungs are clear to auscultation CV is regular without murmur. Extremities show no pedal edema. Impression: Right parietal lobe hemorrhage. 2.dementia of the Alzheimer's type Plan: Transfer back to the senior care Labs Laboratory Tests 06/15/16 06:15 Copy Copies To 1: EZEKIEL VAQZUEZ MD, RODNEY K MD Jun 16, 2016 14:12
--- NOTE | 2016-06-16 14:51 | Discharge Inst-Stroke w/wo TPA ---
Discharge Inst-Stroke w/wo TPA Discharge Medications Reason No Anticoagulant RX: Bleeding Risk Reason No Antithrombolytic: Bleeding Risk Patient Instructions Follow speech therapy recommendations relative to feeding and medications. A copy from the consultation by Brodie HERNANDEZ is included. Resume previous activities as tolerated. PT/OT eval and treatment Activity & Diet Discharge Diet: Other Diet (C speech therapy recommendations) Activity as Tolerated: Yes RALPH ESPINAL MD Jun 16, 2016 14:08
--- NOTE | 2016-07-02 14:39 | Discharge Summary-Hospitalist ---
Diagnosis/Chief Complaint Date of Admission Jun 13, 2016 at 13:31 Date of Discharge Jun 16, 2016 at 16:45 Discharge Date: Jun 16, 2016 Admission Diagnosis 1.right parietal hemorrhagic stroke-patient is currently unable to swallow well and will require IV fluids until this is completely evaluated 2. Senile dementia of Alzheimer's type with episodic agitation 3. Mild dehydration Discharge Diagnosis 1.right parietal lobe hemorrhage. 2.senile dementia of the Alzheimer's type with periodic agitation. 3.mild dehydration at admission Reason Hospital Visit/Course this is a 75-year-old white male with Alzheimer's [facility]. He was seen by Garry Gaines yesterday and was sent to the emergency room for further evaluation of increased falling and weakness on the right side. I discussed with his daughter this morning the fact that a week ago he had been able to jump up and was very agile and active. He had fallen approximately 2 days ago; just pitched forward striking his head. Since then his right side has been weaker and is been unable to ambulate and keeps falling. this morning the patient is somewhat somnolent having received some Ativan overnight for his agitation. he follows direction slowly and incompletely seems to be devoid of any pain. CT showed a hemorrhagic stroke in the right parietal region. The patient was discovered to have a lower level of performance by virtue of [facility] staff observation and mid-level provider evaluation (Robert Gaines nurse practitioner). He was admitted directly to the hospitalist service. A CT scan was performed and revealed an acute right parietal lobe hemorrhage. Initially he appeared to have difficulties with speech and swallowing. [facility] show therapy/swallowing study evaluation was done. Results are as on the consultation sheet. The patient improved somewhat although he remained confused he was felt capable of returning to the [facility] as he was not in need of any therapy modalities and indeed was unlikely to be able to participate. Medications are as in the discharge sequence Discharge Summary Discharge Physical Examination Allergies: Coded Allergies: No Known Drug Allergies (Unverified , 06/13/16) Discharge Home Medications: Active Scripts Active Reported Tylenol Extra Strength (Acetaminophen) 500 Mg Tablet 1,000 Mg PO Q8H PRN TAKES 2 (500MG) TABLETS Trazodone HCl 150 Mg Tablet 150 Mg PO HS Namenda (Memantine HCl) 10 Mg Tablet 10 Mg PO BID Miralax (Polyethylene Glycol 3350) 17 Gm Powd.pack 17 Gm PO DAILY PRN Milk of Magnesia (Magnesium Hydroxide) 400 Mg/5 Ml Oral.susp 30 Ml PO DAILY PRN Melatonin 3 mg Tablet (Melatonin/Pyridoxine) 1 Each Tablet 6 Mg PO HS Eye Vitamin-Minerals Tablet (Vit A/C/E AC/Znox/Cupric Oxide) 1 Each Tablet 1 Tab PO BID Rivastigmine 1 Each Patch.td24 13.3 Mg TD DAILY Depakote Sprinkle (Divalproex Sodium) 125 Mg Cap 250 Mg PO DAILY TAKES 2 (125MG) CAPSULES Depakote Sprinkle (Divalproex Sodium) 125 Mg Cap 125 Mg PO 1400 Colace (Docusate Sodium) 100 Mg Capsule 100 Mg PO BID Claritin (Loratadine) 10 Mg Tablet 10 Mg PO DAILY PRN Lorazepam 0.5 Mg Tablet 0.25 Mg PO BID TAKES 1/2 (0.5MG) TABLET Artificial Tears Drops (Polyvinyl Alcohol/Povidone) 15 Ml Drops 1 Drop OU QID Instructions to patient/family Please see electonic discharge instructions given to patient. Clinical Quality Measures DVT/VTE Risk/Contraindication: Risk Factor Score Per Nursin RFS Level Per Nursing on Admit: 4+=Very High Contraindications-Pharm: Other *list below* Other: hemorrhagic stroke Copy Copies To 1: EZEKIEL VAZQUEZ MD, RODNEY K MD Jul 02, 2016 14:39
== END 2016-06-16 16:45 | DRG 65 ==
LOC: EDUNIT# 11:04 → ER 11:07 → 4TH 13:31
PROVIDERS: ADMIT Internal Medicine; ATTEND Internal Medicine
DX: I61.8 Other nontraumatic intracerebral hemorrhage (principal); F02.81 Dementia in other diseases classified elsewhere, unspecified severity, with behavioral disturbance; G30.9 Alzheimer's disease, unspecified; R13.11 Dysphagia, oral phase; R26.0 Ataxic gait; E86.0 Dehydration; G47.00 Insomnia, unspecified; Z66 Do not resuscitate; Z91.81 History of falling
CPT/HCPCS: 36415; 70450; 71010; 72125; 80053; 81000; 84443; 85025; 86141; 96360

== ENCOUNTER 2017-02-25 07:36 | Emergency (ER) | payer MEDICARE, MEDICAID ==
[~2017-02-25] VITALS: Ht 175.3 cm; Wt 68.0 kg
[~2017-02-25 07:36] MED LIST changes: +ACET-2267 PO; +DOCU-143 PO; +DVL125C PO; +LORA0.5T PO; +LORA10TA76 PO; +MAGN400O7 PO; +MELA1TAB10 PO; +MEMA10TA2 PO; +POLY15DR14 OU; +POLY17PO6 PO; +RIVA1PAT13 TD; +TRAZ150T72 PO; +VIT-8 PO
[2017-02-25] MEDS ORDERED: LIDOCAINE/EPI 1%-1:100,000 (XYLOCAINE) 20ML INJ ONE (08:00)
[2017-02-25 08:10] LABS: BASOPHILS % (AUTO) 0 % (0-10); EOSINOPHILS # (AUTO) 0.1 10^3/uL (0.0-0.3); EOSINOPHILS % (AUTO) 1 % (0-10); LYMPHOCYTES # (AUTO) 1.2 X 10^3 (1.0-4.0); LYMPHOCYTES % (AUTO) 15 % (12-44); MEAN CORPUSCULAR HEMOGLOBIN 30 PG (25-34); MEAN CORPUSCULAR HGB CONC 33 G/DL (32-36); MEAN CORPUSCULAR VOLUME 91 FL (80-99); MEAN PLATELET VOLUME 11.1 FL (7.4-10.4); MONOCYTES # (AUTO) 0.5 X 10^3 (0.0-1.0); MONOCYTES % (AUTO) 6 % (0-12); NEUTROPHILS # (AUTO) 6.4 X 10^3 (1.8-7.8); NEUTROPHILS % (AUTO) 78 % (42-75); PLATELET COUNT 166 10^3/uL (130-400); RED BLOOD COUNT 4.68 10^6/uL (4.35-5.85); RED CELL DISTRIBUTION WIDTH 13.6 % (10.0-14.5); WHITE BLOOD COUNT 8.2 10^3/uL (4.3-11.0)
[2017-02-25 08:31] LABS: ANION GAP 11 MMOL/L (5-14); BLOOD UREA NITROGEN 13 MG/DL (7-18); BUN/CREATININE RATIO 19; CALCIUM 8.9 MG/DL (8.5-10.1); CARBON DIOXIDE 23 MMOL/L (21-32); CHLORIDE 103 MMOL/L (98-107); CREATININE SERUM 0.69 MG/DL (0.60-1.30); GFR ESTIMATED > 60; GLUCOSE 81 MG/DL (70-105); POTASSIUM 3.8 MMOL/L (3.6-5.0); SODIUM 137 MMOL/L (135-145)
[2017-02-25 08:38] LABS: VALPROIC ACID 25.9 UG/ML (50.0-100.0)
[2017-02-25] MEDS ORDERED: LIDOCAINE/EPI 1%-1:200,000 (XYLOCAINE) 10 ML VIAL INJ ONE (08:45)
--- NOTE | 2017-02-25 08:50 | Diagnostic Imaging Report ---
AP view of the pelvis. INDICATION: Fall. FINDINGS: No fracture, dislocation or radiopaque foreign body is seen. There are mild degenerative changes in the hip joints and SI joints noted. No radiopaque foreign body. IMPRESSION: No fracture seen. Dictated by: Dictated on workstation # [id number]
--- NOTE | 2017-02-25 08:50 | Diagnostic Imaging Report ---
PROCEDURE: CT head and CT cervical spine without contrast. TECHNIQUE: Multiple contiguous axial images were obtained through the brain and cervical spine without the use of intravenous contrast. Sagittal and coronal reformations through the cervical spine were then performed. INDICATION: Fall. Laceration on the right eyebrow. COMPARISON: 06/14/2016. FINDINGS: CT HEAD: There is no intracranial hemorrhage, edema, or mass effect. The brain parenchyma demonstrates periventricular and deep white matter hypodensities, compatible with chronic microvascular ischemic changes. Minimal ex vacuo dilatation of the CSF spaces is seen with no significant hydrocephalus. The calvarium, paranasal sinuses, and orbits (visualized portions) appear unremarkable. There is a minimal right supraorbital scalp hematoma. CT CERVICAL SPINE: There is straightening and minimal reversal of the lordotic curvature. The alignment of the posterior spinal line is satisfactory. The vertebral body heights are preserved. There is significant disc height loss at the C5-6 level with prominent posterior osteophytes. The alignment of the lateral masses of C1 and C2 and the atlantooccipital joints is satisfactory. No fracture is seen. There is moderate severe bilateral foraminal stenosis at C5-6, worse on the right side. IMPRESSION: CT HEAD: No intracranial hemorrhage. CT CERVICAL SPINE: Mild reversal of the cervical spine and advanced degenerative changes. Dictated by: Dictated on workstation # [id number]
--- NOTE | 2017-02-25 08:52 | Diagnostic Imaging Report ---
Supine AP view of the chest. INDICATION: Fall. FINDINGS: The lungs are clear of focal infiltrate. There is chronic appearing interstitial thickening. The heart size is normal. No effusion or pneumothorax evident on this supine radiograph. The mediastinum and vi appear unremarkable. IMPRESSION: No acute process. Dictated by: Dictated on workstation # [id number]
[2017-02-25 09:18] LABS: BILIRUBIN,URINE NEGATIVE (NEGATIVE); KETONES,URINE 1+ (NEGATIVE); LEUKOCYTE ESTERASE ,URINE 1+ (NEGATIVE); NITRITE,URINE NEGATIVE (NEGATIVE); PH,URINE 8 (5-9); PROTEIN,URINE NEGATIVE (NEGATIVE); UROBILINOGEN,URINE NORMAL (NORMAL)
[2017-02-25 09:33] LABS: WBC,URINE 0-2 /HPF
[2017-02-25] MEDS ORDERED: TETANUS,DIPTH,PERTUSS P/F (BOOSTRIX) 0.5 ML VIAL IM ONE (10:00)
[2017-02-25] MEDS ORDERED: LORazepam INJ 2 MG/ML (ATIVAN) VIAL IM ONE (10:00)
--- NOTE | 2017-02-25 11:22 | ED Fall/Injury ---
General Chief Complaint: Trauma-Non Activation Stated Complaint: FALL Nursing Triage Note: TO ROOM VIA 07 IN WC FROM [facility]. FOUND ON FLOOR AT APPX 0630 THIS AM. LAC TO RIGHT BROW NOTED. PT CONFUSED WITH [facility]. Source: family, long-term records, caregiver Exam Limitations: clinical condition History of Present Illness Time seen by provider: 07:41 Initial Comments This 76 year old resident of [facility] is brought to the emergency room by staff after he suffered an unwitnessed fall. He is alert and at baseline mentation. He has significant cognitive deficits due to prior stroke and dementia. He has a 3 cm laceration above the right brow. He was found down at approximately 06:30. Patient is on Depakote. Allergies and Home Medications Allergies Coded Allergies: No Known Drug Allergies (Unverified , 06/13/16) Home Medications Acetaminophen 500 Mg Tablet, 1,000 MG PO Q8H PRN for MODERATE PAIN, (Reported) TAKES 2 (500MG) TABLETS Divalproex Sodium 125 Mg Cap, 125 MG PO 1400, (Reported) Divalproex Sodium 125 Mg Cap, 250 MG PO DAILY, (Reported) TAKES 2 (125MG) CAPSULES Docusate Sodium 100 Mg Capsule, 100 MG PO BID, (Reported) Loratadine 10 Mg Tablet, 10 MG PO DAILY PRN for ALLERGIES, (Reported) Lorazepam 0.5 Mg Tablet, 0.25 MG PO BID, (Reported) TAKES 1/2 (0.5MG) TABLET Magnesium Hydroxide 400 Mg/5 Ml Oral.susp, 30 ML PO DAILY PRN for CONSTIPATION, (Reported) Melatonin/Pyridoxine 1 Each Tablet, 6 MG PO HS, (Reported) Memantine HCl 10 Mg Tablet, 10 MG PO BID, (Reported) Polyethylene Glycol 3350 17 Gm Powd.pack, 17 GM PO DAILY PRN for CONSTIPATION, ( Reported) Polyvinyl Alcohol/Povidone 15 Ml Drops, 1 DROP OU QID, (Reported) Rivastigmine 1 Each Patch.td24, 13.3 MG TD DAILY, (Reported) Trazodone HCl 150 Mg Tablet, 150 MG PO HS, (Reported) Vit A/C/E AC/Znox/Cupric Oxide 1 Each Tablet, 1 TAB PO BID, (Reported) Constitutional: no symptoms reported Eyes: No Symptoms Reported Ears, Nose, Mouth, Throat: no symptoms reported Respiratory: no symptoms reported Cardiovascular: no symptoms reported Gastrointestinal: no symptoms reported Musculoskeletal: no symptoms reported Skin: see HPI Psychiatric/Neurological: See HPI Past Hnwroef-Suslyy-Ngragd Hx Patient Social History Alcohol Use: Denies Use Recreational Drug Use: No Smoking Status: Unknown if Ever Smoked 2nd Hand Smoke Exposure: No Recent Foreign Travel: No Contact w/Someone Who Travel: No Recent Infectious Disease Expo: No Recent Hopitalizations: No Immunizations Up To Date Tetanus Booster (TDap): Unknown Date of Pneumonia Vaccine: Jan 07, 2012 Date of Influenza Vaccine: Jan 26, 2016 Seasonal Allergies Seasonal Allergies: No Surgeries History of Surgeries: Yes Surgeries: Appendectomy Respiratory History of Respiratory Disorde: Yes ("SPOT ON HIS LUNG") Cardiovascular History of Cardiac Disorders: No Neurological History of Neurological Disord: Yes Neurological Disorders: Dementia, Stroke Reproductive System Hx Reproductive Disorders: No Sexually Transmitted Disease: No Gastrointestinal History of Gastrointestinal Di: No Musculoskeletal History of Musculoskeletal Dis: No Endocrine History of Endocrine Disorders: No Cancer History of Cancer: Yes Cancer: Melanoma Psychosocial History of Psychiatric Problem: Yes (dementia/insomnia) Integumentary History of Skin or Integumenta: No Blood Transfusions History of Blood Disorders: No Family Medical History Significant Family History: No Pertinent Family Hx Family Medial History: Diabetes mellitus 19 MOTHER Neoplasm 19 MOTHER Physical Exam Vital Signs Vital Sign - Last 12Hours 02/25/17 07:40 Temp 98.0 Pulse 65 Resp 18 B/P (MAP) 159/102 Pulse Ox 99 Capillary Refill : Less Than 3 Seconds General Appearance: WD/WN, no apparent distress HEENT: PERRL/EOMI, pharynx normal, other (3 cm laceration over the right brow) Neck: non-tender, full range of motion, normal inspection Cardiovascular: regular rate, rhythm, no edema, no murmur Respiratory: lungs clear, normal breath sounds, no respiratory distress, no accessory muscle use Gastrointestinal: normal bowel sounds, non tender, soft Back: normal inspection Extremities: normal inspection, no pedal edema Neurologic/Psychiatric: test driller II-XII nml as tested, no motor/sensory deficits, alert, other (Mentation at baseline per staff) Skin: normal color, warm/dry [place] Coma Score Best Eye Response: (4) Open Spontaneously Best Verbal Response: (4) Confused Conversation Best Motor Response: (6) Obeys Commands Manasa Total: 14 Laceration Repair : Wound Location: Face Other Wound Location Right brow Wound Length (cm): 3 Wound's Depth, Shape: irregular, sub Q Wound Explored: clean Irrigated w/ Saline (ccs): 200 Betadine Prep?: Yes Anesthesia: 1% Lidocaine Volume Anesthetic (ccs): 4 Suture: Prolene Suture Size: 4-0 Number of Sutures: 5 Sterile Dressing Applied?: No Progress/Results/Core Measures Results/Orders Lab Results Laboratory Tests Test 02/25/17 08:03 02/25/17 09:05 Range/Units White Blood Count 8.2 4.3-11.0 10^3/uL Red Blood Count 4.68 4.35-5.85 10^6/uL Hemoglobin 14.2 13.3-17.7 G/DL Hematocrit 43 40-54 % Mean Corpuscular Volume 91 80-99 FL Mean Corpuscular Hemoglobin 30 25-34 PG Mean Corpuscular Hemoglobin Concent 33 32-36 G/DL Red Cell Distribution Width 13.6 10.0-14.5 % Platelet Count 166 130-400 10^3/uL Mean Platelet Volume 11.1 H 7.4-10.4 FL Neutrophils (%) (Auto) 78 H 42-75 % Lymphocytes (%) (Auto) 15 12-44 % Monocytes (%) (Auto) 6 0-12 % Eosinophils (%) (Auto) 1 0-10 % Basophils (%) (Auto) 0 0-10 % Neutrophils # (Auto) 6.4 1.8-7.8 X 10^3 Lymphocytes # (Auto) 1.2 1.0-4.0 X 10^3 Monocytes # (Auto) 0.5 0.0-1.0 X 10^3 Eosinophils # (Auto) 0.1 0.0-0.3 10^3/uL Basophils # (Auto) 0.0 0.0-0.1 10^3/uL Sodium Level 137 135-145 MMOL/L Potassium Level 3.8 3.6-5.0 MMOL/L Chloride Level 103 98-107 MMOL/L Carbon Dioxide Level 23 21-32 MMOL/L Anion Gap 11 5-14 MMOL/L Blood Urea Nitrogen 13 7-18 MG/DL Creatinine 0.69 0.60-1.30 MG/DL Estimat Glomerular Filtration Rate > 60 BUN/Creatinine Ratio 19 Glucose Level 81 70-105 MG/DL Calcium Level 8.9 8.5-10.1 MG/DL Valproic Acid (Depakene) Level 25.9 L 50.0-100.0 UG/ML Urine Color YELLOW Urine Clarity CLEAR Urine pH 8 5-9 Urine Specific [place] 1.015 L 1.016-1.022 Urine Protein NEGATIVE NEGATIVE Urine Glucose (UA) NEGATIVE NEGATIVE Urine Ketones 1+ H NEGATIVE Urine Nitrite NEGATIVE NEGATIVE Urine Bilirubin NEGATIVE NEGATIVE Urine Urobilinogen NORMAL NORMAL MG/DL Urine Leukocyte Esterase 1+ H NEGATIVE Urine RBC (Auto) NEGATIVE NEGATIVE Urine RBC RARE /HPF Urine WBC 0-2 /HPF Urine Squamous Epithelial Cells NONE /HPF Urine Crystals NONE /LPF Urine Bacteria NEGATIVE /HPF Urine Casts NONE /LPF Urine Mucus NEGATIVE /LPF Urine Culture Indicated NO My Orders Orders - TRAMAINE FOOTE MD Ct Head/Cervical Spine Wo (02/25/17 07:49) Chest 1 View, Ap/Pa Only (02/25/17 07:49) Pelvis (02/25/17 07:49) Basic Metabolic Panel (02/25/17 07:49) Cbc With Automated Diff (02/25/17 07:49) Ua Culture If Indicated (02/25/17 07:49) Valproic Acid (02/25/17 07:49) Lidocaine/Epi 1% 1:100,000 (Xylocaine /E (02/25/17 08:00) Lidocaine/Epi Mpf 1% 1:200,000 (Xylocain (02/25/17 08:45) Lorazepam Injection (Ativan Injection) (02/25/17 10:00) Dipht,Pertuss(Acell),Tet Adult (Boostrix (02/25/17 10:00) Medications Given in ED Current Medications Medications Dose Ordered Sig/Regis Route Start Time Stop Time Status Last Admin Dose Admin Diphtheria/ Tetanus/Acell Pertussis 0.5 ml ONCE ONCE IM 02/25/17 10:00 02/25/17 10:01 DC 02/25/17 10:04 0.5 ML Lorazepam 0.5 mg ONCE ONCE IM 02/25/17 10:00 02/25/17 10:01 DC 02/25/17 10:03 0.5 MG Vital Signs/I&O Vital Sign - Last 12Hours 02/25/17 02/25/17 07:40 11:33 Temp 98.0 Pulse 65 71 Resp 18 16 B/P (MAP) 159/102 Pulse Ox 99 99 Blood Pressure Mean: 121 Progress Note : Progress Note CT of the head and neck as well as chest and pelvis showed no acute injuries. Laceration above the right brow was anesthetized locally, irrigated, and approximated with Prolene suture. Patient was given a Boostrix tetanus immunization. Ativan 0.5 mg IM was administered prior to repairing the wound. Patient staff was concerned he may begin hitting if he gets too far from his Ativan dosing. Repair of the wound was performed easily without any complication. Patient cooperated well. Diagnostic Imaging Diagonstic Imaging: CT Plain Films/CT/US/NM/MRI: c-spine, head Comments CT head and C-spine viewed by me and report reviewed. See report below: NAME: MARIAJOSE CEBALLOS [facility] REC#: [id number] PT STATUS: REG ER : 1940 PHYSICIAN: TRAMAINE FOOTE MD ADMIT DATE: 02/25/17/ER Signed Date of Exam: 02/25/17 CT HEAD/CERVICAL SPINE WO PROCEDURE: CT head and CT cervical spine without contrast. TECHNIQUE: Multiple contiguous axial images were obtained through the brain and cervical spine without the use of intravenous contrast. Sagittal and coronal reformations through the cervical spine were then performed. INDICATION: Fall. Laceration on the right eyebrow. COMPARISON: 06/14/2016. FINDINGS: CT HEAD: There is no intracranial hemorrhage, edema, or mass effect. The brain parenchyma demonstrates periventricular and deep white matter hypodensities, compatible with chronic microvascular ischemic changes. Minimal ex vacuo dilatation of the CSF spaces is seen with no significant hydrocephalus. The calvarium, paranasal sinuses, and orbits (visualized portions) appear unremarkable. There is a minimal right supraorbital scalp hematoma. CT CERVICAL SPINE: There is straightening and minimal reversal of the lordotic curvature. The alignment of the posterior spinal line is satisfactory. The vertebral body heights are preserved. There is significant disc height loss at the C5-6 level with prominent posterior osteophytes. The alignment of the lateral masses of C1 and C2 and the atlantooccipital joints is satisfactory. No fracture is seen. There is moderate severe bilateral foraminal stenosis at C5-6, worse on the right side. IMPRESSION: CT HEAD: No intracranial hemorrhage. CT CERVICAL SPINE: Mild reversal of the cervical spine and advanced degenerative changes. Dictated by: Dictated on workstation # [id number] Dict: 02/25/17 0834 Trans: 02/25/17 1050 Interpreted by: NIKO WILKS MD Electronically signed by: NIKO WILKS MD 02/25/17 1050 Diagonstic Imaging: Xray Plain Films/CT/US/NM/MRI: chest Comments Chest x-ray viewed by me and report reviewed. See report below: NAME: MARIAJOSE [facility]OS [facility] REC#: [id number] PT STATUS: REG ER : 1940 PHYSICIAN: TRAMAINE FOOTE MD ADMIT DATE: 02/25/17/ER Signed Date of Exam: 02/25/17 CHEST 1 VIEW, AP/PA ONLY Supine AP view of the chest. INDICATION: Fall. FINDINGS: The lungs are clear of focal infiltrate. There is chronic appearing interstitial thickening. The heart size is normal. No effusion or pneumothorax evident on this supine radiograph. The mediastinum and vi appear unremarkable. IMPRESSION: No acute process. Dictated by: Dictated on workstation # [id number] Dict: 02/25/17 0845 Trans: 02/25/17 0940 Interpreted by: NIKO WILKS MD Electronically signed by: NIKO WILKS MD 02/25/17 0940 Diagonstic Imaging: Xray Plain Films/CT/US/NM/MRI: pelvis Comments Pelvis x-ray viewed by me and report reviewed. See report below: NAME: MARIAJOSE CEBALLOS [facility] REC#: [id number] PT STATUS: REG ER : 1940 PHYSICIAN: TRAMAINE FOOTE MD ADMIT DATE: 02/25/17/ER Signed Date of Exam: 02/25/17 PELVIS AP view of the pelvis. INDICATION: Fall. FINDINGS: No fracture, dislocation or radiopaque foreign body is seen. There are mild degenerative changes in the hip joints and SI joints noted. No radiopaque foreign body. IMPRESSION: No fracture seen. Dictated by: Dictated on workstation # [id number] Dict: 02/25/17845 Trans: 02/25/17939 Interpreted by: NIKO WILKS MD Electronically signed by: NIKO WILKS MD 02/25/17939 Departure Impression Impression: Primary Impression: Fall on same level Qualified Codes: W18.30XA - Fall on same level, unspecified, initial encounter Additional Impression: Laceration of forehead Qualified Codes: S01.81XA - Laceration without foreign body of other part of head, initial encounter Disposition: HOME, SELF-CARE Condition: Improved Departure-Patient Inst. Decision time for Depature: 11:00 Referrals: EZEKIEL VAZQUEZ MD (PCP/Family) Primary Care Physician Patient Instructions: Laceration Repair With Stitches (DC) Add. Discharge Instructions: Monitor the wound for signs of infection including increasing redness, increasing swelling, puslike drainage, fever, or increasing pain. Return to care if you notice these symptoms. You may apply a clean dressing. You may use antibiotic ointment or Vaseline to prevent the dressing from sticking to the wound. Return in about 7 days to have the sutures removed. Call his doctor or return to care if you have any other problems or concerns. All discharge instructions reviewed with patient and/or family. Voiced understanding. TRAMAINE FOOTE MD Feb 25, 2017 11:21
[2017-02-25 11:33] VITALS: BP 175/96
== END 2017-02-25 11:33 | disposition home or self-care (01) ==
LOC: EDUNIT# 07:36 → ER 07:37
DX: S01.81XA Laceration without foreign body of other part of head, initial encounter (principal); F03.90 Unspecified dementia, unspecified severity, without behavioral disturbance, psychotic disturbance, mood disturbance, and anxiety; G47.00 Insomnia, unspecified; Z23 Encounter for immunization; Z86.73 Personal history of transient ischemic attack (TIA), and cerebral infarction without residual deficits; Z90.49 Acquired absence of other specified parts of digestive tract; W19.XXXA Unspecified fall, initial encounter
CPT/HCPCS: 36415; 51701; 70450; 71010; 72125; 72170; 80048; 80164; 81000; 85025; 90715

== ENCOUNTER 2017-09-21 08:38 | Emergency (ER) | payer MEDICARE, MEDICAID ==
[~2017-09-21] VITALS: Ht 175.3 cm; Wt 68.0 kg
[2017-09-21] MEDS ORDERED: NS IV 1000 ML 1,000 ML IV SCH (08:51)
--- NOTE | 2017-09-21 08:58 | ED General ---
General Stated Complaint: FEVER Source of Information: Patient, Spouse Exam Limitations: Physical Impairments (late stage dementia) History of Present Illness Date Seen by Provider: September 21, 2017 Time Seen by Provider: 08:45 Initial Comments The patient presents by EMS from the [facility] where he was noted to have been doing well yesterday but acted a little off so they gave him some Tylenol and then today he was noted to have 100.4 temperature. 2 weeks ago he was treated for urinary tract infection. His relates that he is a history of kidney stones many years ago. The patient is end-stage dementia, nonverbal and unable to make his wishes known that his is his power of trade mark attorney. She says she has sought hospice care in the past but was told that he was not a candidate for hospice at his stage of dementia. He has completed his antibiotics from his previous urinary tract infection. No one has noted any coughing or air hunger. The patient was given rectal Tylenol 650 mg about half an hour prior to arrival. Staff at the custodial said his blood pressure was in the mid 90s systolic and he had a heart rate of 114. EMS initiated an IV and started 1 L of normal saline. After discussing with the she would like to have a workup to know what's going on and she is leaning heavily towards comfort care. Allergies and Home Medications Allergies Coded Allergies: No Known Drug Allergies (Unverified , 06/13/16) Home Medications Acetaminophen 500 Mg Tablet, 1,000 MG PO Q8H PRN for MODERATE PAIN, (Reported) TAKES 2 (500MG) TABLETS Divalproex Sodium 125 Mg Cap, 125 MG PO 1400, (Reported) Divalproex Sodium 125 Mg Cap, 250 MG PO DAILY, (Reported) TAKES 2 (125MG) CAPSULES Docusate Sodium 100 Mg Capsule, 100 MG PO BID, (Reported) Loratadine 10 Mg Tablet, 10 MG PO DAILY PRN for ALLERGIES, (Reported) Lorazepam 0.5 Mg Tablet, 0.25 MG PO BID, (Reported) TAKES 1/2 (0.5MG) TABLET Magnesium Hydroxide 400 Mg/5 Ml Oral.susp, 30 ML PO DAILY PRN for CONSTIPATION, (Reported) Melatonin/Pyridoxine 1 Each Tablet, 6 MG PO HS, (Reported) Memantine HCl 10 Mg Tablet, 10 MG PO BID, (Reported) Polyethylene Glycol 3350 17 Gm Powd.pack, 17 GM PO DAILY PRN for CONSTIPATION, ( Reported) Polyvinyl Alcohol/Povidone 15 Ml Drops, 1 DROP OU QID, (Reported) Rivastigmine 1 Each Patch.td24, 13.3 MG TD DAILY, (Reported) Trazodone HCl 150 Mg Tablet, 150 MG PO HS, (Reported) Vit A/C/E AC/Znox/Cupric Oxide 1 Each Tablet, 1 TAB PO BID, (Reported) Patient Home Medication List Home Medication List Reviewed: Yes Review of Systems Constitutional: see HPI (patient is unable to give any meaningful review of systems and nursing notes are all negative) EENTM: no symptoms reported Respiratory: no symptoms reported Cardiovascular: no symptoms reported Gastrointestinal: no symptoms reported Genitourinary: no symptoms reported Skin: no symptoms reported Psychiatric/Neurological: No Symptoms Reported Past Lsxzzmh-Jbqtpl-Xvdmgs Hx Patient Social History Alcohol Use: Denies Use Recreational Drug Use: No Smoking Status: Never a Smoker 2nd Hand Smoke Exposure: No Recent Hopitalizations: No Immunizations Up To Date Tetanus Booster (TDap): Unknown Date of Pneumonia Vaccine: Jan 07, 2012 Date of Influenza Vaccine: Jan 26, 2016 Seasonal Allergies Seasonal Allergies: No Past Medical History Surgeries: Yes Appendectomy Respiratory: Yes ("SPOT ON HIS LUNG") Cardiac: No Neurological: Yes Dementia, Stroke Reproductive Disorders: No Sexually Transmitted Disease: No Gastrointestinal: No Musculoskeletal: No Endocrine: No Cancer: Yes Melanoma Psychosocial: Yes (dementia/insomnia) Integumentary: No Blood Disorders: No Family Medical History Diabetes mellitus 19 MOTHER Neoplasm 19 MOTHER No Pertinent Family Hx Physical Exam-Suspected Sepsis Physical Exam Vital Signs Vital Signs - First Documented 09/21/17 08:38 Temp 101.0 Pulse 117 Resp 18 B/P (MAP) 111/74 (86) Pulse Ox 95 O2 Delivery Nasal Cannula Capillary Refill : General Appearance: Thin, Other (obtunded) Eyes: Bilateral Eye Normal Inspection, Bilateral Eye PERRL, Bilateral Eye EOMI HEENT: PERRL/EOMI, Pharynx Normal (edontulous); No Moist Mucous Membranes; Other (bilateral canals occluded with cerumen) Neck: Non Tender, Supple Respiratory: Chest Non Tender, Lungs Clear, Normal Breath Sounds, No Accessory Muscle Use, No Respiratory Distress Cardiovascular: No Edema, Normal Peripheral Pulses, Tachycardia Gastrointestinal: Non Tender, Soft Extremity: Normal Capillary Refill, Normal Inspection, Non Tender, No Calf Tenderness, No Pedal Edema Neurologic/Psychiatric: Other (obtunded, GCS 7 but near baseline) Skin: normal color, diaphoresis, other (no sacral decubitus or maceration) Focused Exam Lactate Level 09/21/17 08:56: Lactic Acid Level 1.37 Lactic Acid Level Laboratory Tests Test 09/21/17 08:56 Lactic Acid Level 1.37 MMOL/L (0.50-2.00) Procedures/Interventions Suture Size: 4-0 Progress/Results/Core Measures Suspected Sepsis SIRS Temperature: Pulse: Respiratory Rate: Laboratory Tests 09/21/17 08:56: White Blood Count 13.2H Blood Pressure / Mean: 09/21/17 08:56: Lactic Acid Level 1.37 Laboratory Tests 09/21/17 08:56: Creatinine 0.85, INR Comment 1.2, Platelet Count 174, Total Bilirubin 0.7 Results/Orders Lab Results Laboratory Tests Test 09/21/17 08:56 Range/Units White Blood Count 13.2 H 4.3-11.0 10^3/uL Red Blood Count 4.47 4.35-5.85 10^6/uL Hemoglobin 13.9 13.3-17.7 G/DL Hematocrit 41 40-54 % Mean Corpuscular Volume 92 80-99 FL Mean Corpuscular Hemoglobin 31 25-34 PG Mean Corpuscular Hemoglobin Concent 34 32-36 G/DL Red Cell Distribution Width 14.2 10.0-14.5 % Platelet Count 174 130-400 10^3/uL Mean Platelet Volume 10.6 H 7.4-10.4 FL Neutrophils (%) (Auto) 86 H 42-75 % Lymphocytes (%) (Auto) 3 L 12-44 % Monocytes (%) (Auto) 11 0-12 % Eosinophils (%) (Auto) 0 0-10 % Basophils (%) (Auto) 0 0-10 % Neutrophils # (Auto) 11.3 H 1.8-7.8 X 10^3 Lymphocytes # (Auto) 0.4 L 1.0-4.0 X 10^3 Monocytes # (Auto) 1.5 H 0.0-1.0 X 10^3 Eosinophils # (Auto) 0.0 0.0-0.3 10^3/uL Basophils # (Auto) 0.0 0.0-0.1 10^3/uL Neutrophils % (Manual) 74 % Lymphocytes % (Manual) 3 % Monocytes % (Manual) 7 % Eosinophils % (Manual) 0 % Basophils % (Manual) 0 % Band Neutrophils 16 % Blood Morphology Comment NORMAL Prothrombin Time 15.1 H 12.2-14.7 SEC INR Comment 1.2 0.8-1.4 Activated Partial Thromboplast Time 32 24-35 SEC Urine Color YELLOW Urine Clarity SLIGHTLY CLOUDY Urine pH 8 5-9 Urine Specific [place] 1.015 L 1.016-1.022 Urine Protein 2+ H NEGATIVE Urine Glucose (UA) NEGATIVE NEGATIVE Urine Ketones 1+ H NEGATIVE Urine Nitrite NEGATIVE NEGATIVE Urine Bilirubin NEGATIVE NEGATIVE Urine Urobilinogen 8 H NORMAL MG/DL Urine Leukocyte Esterase 1+ H NEGATIVE Urine RBC (Auto) 1+ H NEGATIVE Urine RBC 0-2 /HPF Urine WBC 0-2 /HPF Urine Squamous Epithelial Cells NONE /HPF Urine Crystals NONE /LPF Urine Bacteria NEGATIVE /HPF Urine Casts NONE /LPF Urine Mucus NEGATIVE /LPF Urine Culture Indicated NO Sodium Level 140 135-145 MMOL/L Potassium Level 3.7 3.6-5.0 MMOL/L Chloride Level 107 98-107 MMOL/L Carbon Dioxide Level 22 21-32 MMOL/L Anion Gap 11 5-14 MMOL/L Blood Urea Nitrogen 14 7-18 MG/DL Creatinine 0.85 0.60-1.30 MG/DL Estimat Glomerular Filtration Rate > 60 BUN/Creatinine Ratio 16 Glucose Level 120 H 70-105 MG/DL Lactic Acid Level 1.37 0.50-2.00 MMOL/L Calcium Level 8.6 8.5-10.1 MG/DL Total Bilirubin 0.7 0.1-1.0 MG/DL Aspartate Amino Transf (AST/SGOT) 15 5-34 U/L Alanine Aminotransferase (ALT/SGPT) 8 0-55 U/L Alkaline Phosphatase 85 40-136 U/L Total Protein 6.6 6.4-8.2 GM/DL Albumin 3.7 3.2-4.5 GM/DL My Orders Orders - DAYSI SANDERS Cbc With Automated Diff (09/21/17 08:51) Comprehensive Metabolic Panel (09/21/17 08:51) Lactic Acid Analyzer (09/21/17 08:51) Blood Culture (09/21/17 08:51) Sputum Culture (09/21/17 08:51) Ua Culture If Indicated (09/21/17 08:51) Protime With Inr (09/21/17 08:51) Partial Thromboplastin Time (09/21/17 08:51) Chest 1 View, Ap/Pa Only (09/21/17 08:51) O2 (09/21/17 08:51) Saline Lock/Iv-Start (09/21/17 08:51) Saline Lock/Iv-Start (09/21/17 08:51) Cefepime Injection (Maxipime Injection) (09/21/17 09:00) Vital Signs Adult Sepsis Patie Q1H (09/21/17 08:51) Remove Rings In Anticipation O (09/21/17 08:51) Saline Lock/Iv-Start (09/21/17 08:51) Ns Iv 1000 Ml (Sodium Chloride 0.9%) (09/21/17 08:51) Manual Differential (09/21/17 08:56) General/Regular (09/21/17 Lunch) Medications Given in ED Current Medications Medications Dose Ordered Sig/Regis Route Start Time Stop Time Status Last Admin Dose Admin Cefepime HCl 2000 mg/Sodium Chloride 50 ml @ 100 mls/hr ONCE ONCE IV 09/21/17 09:00 09/21/17 09:29 DC 09/21/17 09:42 100 MLS/HR Vital Signs/I&O 09/21/17 09/21/17 08:38 12:31 Temp 101.0 98.2 Pulse 117 Resp 18 B/P (MAP) 111/74 (86) Pulse Ox 95 O2 Delivery Nasal Cannula Capillary Refill : Progress Note #1: Time: 08:58 Progress Note Plan to establish a diagnosis and then re-convene with and it seems like she is going to elect comfort cares/hospice. Progress Note #2: Time: 12:52 Progress Note [facility] and she says she will get someone out to evaluate him at the custodial as soon as possible today and we can send him back. Diagnostic Imaging Diagonstic Imaging: Xray Plain Films/CT/US/NM/MRI: chest (1v) Comments NAME: [facility] REC#: [id number] PT STATUS: REG ER : 1940 PHYSICIAN: DAYSI SANDERS MD ADMIT DATE: 09/21/17/ER Draft Date of Exam:09/21/17 CHEST 1 VIEW, AP/PA ONLY Indication: Fever. Comparison made with prior examination of 02/25/2017. Findings: There is a right basilar infiltrate, suspect for pneumonia. Heart size is normal. No pleural effusion or pneumothorax. Mediastinum is unremarkable. Impression: Right basilar infiltrate suspect for pneumonia. Recommend followup radiograph to ensure resolution as the possibility of underlying mass cannot be excluded. Dictated on workstation # [id number] Dict: 09/21/17 09 Trans: 09/21/17 09 [facility] [id number] Interpreted by: JEFF MCKEON MD Electronically signed by: Reviewed: Reviewed by Me Departure Impression Primary Impression: Pneumonia Qualified Codes: J18.1 - Lobar pneumonia, unspecified organism Additional Impressions: Dementia Qualified Codes: G30.9 - Alzheimer's disease, unspecified; F02.80 - Dementia in other diseases classified elsewhere without behavioral disturbance Sepsis Qualified Codes: A41.9 - Sepsis, unspecified organism Need for comfort care Disposition: HOME, SELF-CARE Condition: Improved Departure-Patient Inst. Decision time for Depature: 12:58 Referrals: EZEKIEL VAZQUEZ MD (PCP/Family) Primary Care Physician Add. Discharge Instructions: Comfort cares only. See attached orders. Consult hospitalist [facility] Scripts Lorazepam (Ativan) 2 Mg/1 Ml Vial 2 MG IJ Q8H PRN for ANXIETY, #2 VIAL 0 Refills Prov: DAYSI SANDERS 09/21/17 Morphine Sulfate/Pf (Morphine 1 mg/ml Vial P-F) 10 Mg/10 Ml Ml 4 MG IJ Q1HR PRN for PAIN-BREAKTHROUGH, #10 ML 0 Refills Prov: DAYSI SANDERS 09/21/17 Copy Copies To 1: EZEKIEL VAZQUEZ MD, TITUS J September 21, 2017 08:58
[2017-09-21] MEDS ORDERED: CEFEPIME INJECTION 2,000 MG in NS (IVPB) 50 ML IV ONE (09:00)
--- NOTE | 2017-09-21 09:07 | Diagnostic Imaging Report ---
Indication: Fever. Comparison made with prior examination of 02/25/2017. Findings: There is a right basilar infiltrate, suspect for pneumonia. Heart size is normal. No pleural effusion or pneumothorax. Mediastinum is unremarkable. Impression: Right basilar infiltrate suspect for pneumonia. Recommend followup radiograph to ensure resolution as the possibility of underlying mass cannot be excluded. Dictated by: Dictated on workstation # [id number]
[2017-09-21 09:16] LABS: BILIRUBIN,URINE NEGATIVE (NEGATIVE); CLARITY,URINE SLIGHTLY CLOUDY; COLOR,URINE YELLOW; GLUCOSE, URINE (UA) NEGATIVE (NEGATIVE); KETONES,URINE 1+ (NEGATIVE); LEUKOCYTE ESTERASE ,URINE 1+ (NEGATIVE); NITRITE,URINE NEGATIVE (NEGATIVE); PH,URINE 8 (5-9); PROTEIN,URINE 2+ (NEGATIVE); UROBILINOGEN,URINE 8 MG/DL (NORMAL)
[2017-09-21 09:17] LABS: BASOPHILS % (AUTO) 0 % (0-10); EOSINOPHILS % (AUTO) 0 % (0-10); HEMATOCRIT 41 % (40-54); HEMOGLOBIN 13.9 G/DL (13.3-17.7); LYMPHOCYTES # (AUTO) 0.4 X 10^3 (1.0-4.0); LYMPHOCYTES % (AUTO) 3 % (12-44); MEAN CORPUSCULAR HEMOGLOBIN 31 PG (25-34); MEAN CORPUSCULAR HGB CONC 34 G/DL (32-36); MEAN CORPUSCULAR VOLUME 92 FL (80-99); MEAN PLATELET VOLUME 10.6 FL (7.4-10.4); MONOCYTES # (AUTO) 1.5 X 10^3 (0.0-1.0); MONOCYTES % (AUTO) 11 % (0-12); NEUTROPHILS # (AUTO) 11.3 X 10^3 (1.8-7.8); NEUTROPHILS % (AUTO) 86 % (42-75); PLATELET COUNT 174 10^3/uL (130-400); RED BLOOD COUNT 4.47 10^6/uL (4.35-5.85); RED CELL DISTRIBUTION WIDTH 14.2 % (10.0-14.5); WHITE BLOOD COUNT 13.2 10^3/uL (4.3-11.0)
[2017-09-21 09:25] LABS: INR 1.2 (0.8-1.4); PROTHROMBIN TIME PATIENT 15.1 SEC (12.2-14.7)
[2017-09-21 09:30] LABS: BACTERIA,URINE NEGATIVE /HPF; RBC,URINE 0-2 /HPF; WBC,URINE 0-2 /HPF
[2017-09-21 09:35] LABS: ALANINE AMINOTRANSFERASE 8 U/L (0-55); ALBUMIN 3.7 GM/DL (3.2-4.5); ALKALINE PHOSPHATASE 85 U/L (40-136); BILIRUBIN,TOTAL 0.7 MG/DL (0.1-1.0); BUN/CREATININE RATIO 16; CALCIUM 8.6 MG/DL (8.5-10.1); CARBON DIOXIDE 22 MMOL/L (21-32); CHLORIDE 107 MMOL/L (98-107); CREATININE SERUM 0.85 MG/DL (0.60-1.30); GFR ESTIMATED > 60; GLUCOSE 120 MG/DL (70-105); POTASSIUM 3.7 MMOL/L (3.6-5.0); SODIUM 140 MMOL/L (135-145); TOTAL PROTEIN 6.6 GM/DL (6.4-8.2)
[2017-09-21 09:51] LABS: BAND NEUTROPHILS 16 %; BASOPHILS % (MANUAL) 0 %; EOSINOPHILS % (MANUAL) 0 %; LYMPHOCYTES % (MANUAL) 3 %; MONOCYTES % (MANUAL) 7 %; NEUTROPHILS % (MANUAL) 74 %; RBC MORPH NORMAL
[2017-09-21] MEDS ORDERED: MORP1VIA3 IJ (13:04)
[2017-09-21] MEDS ORDERED: LORA2VIA29 IJ (13:04)
[2017-09-21 13:21] VITALS: BP 127/84
== END 2017-09-21 13:17 | disposition home or self-care (01) ==
LOC: EDUNIT# 08:38 → ER 08:39
DX: J18.9 Pneumonia, unspecified organism (principal); F03.90 Unspecified dementia, unspecified severity, without behavioral disturbance, psychotic disturbance, mood disturbance, and anxiety; A41.9 Sepsis, unspecified organism; G47.00 Insomnia, unspecified; Z85.820 Personal history of malignant melanoma of skin; Z90.49 Acquired absence of other specified parts of digestive tract; Z86.73 Personal history of transient ischemic attack (TIA), and cerebral infarction without residual deficits; Z87.440 Personal history of urinary (tract) infections; Z87.442 Personal history of urinary calculi
CPT/HCPCS: 36415; 71045; 80053; 81000; 83605; 85007; 85027; 85610; 85730; 87040; 96361; 96365